=== PATIENT | female | born 1975 | race Two or more races ===

== ENCOUNTER 2023-02-04 22:42 | Emergency (ER) | payer SELFPAY ==
[2023-02-04] MEDS ORDERED: Lidocaine 1% 5 ML VIAL INJECT ONE (23:16)
[2023-02-04] MEDS ORDERED: Lidocaine 1% 10 ML MDV INJECT ONE (23:18)
== END 2023-02-04 23:49 | disposition home or self-care (01) ==
LOC: JD.ED 22:42
DX: S01.312A Laceration without foreign body of left ear, initial encounter (principal); F17.210 Nicotine dependence, cigarettes, uncomplicated; Z86.16 Personal history of COVID-19; W19.XXXA Unspecified fall, initial encounter
CPT/HCPCS: 12011; 99282; 99283; J3490

== ENCOUNTER 2024-01-21 00:10 | Observation (INO) | payer MEDICAID ==
[2024-01-21] MEDS: Morphine 4 MG/ML Syringe IVPUSH ONE (01:13)
[2024-01-21] MEDS: Ondansetron 4 MG/2 ML SDV IVPUSH ONE (01:15)
[2024-01-21] MEDS: Sodium Chloride 0.9% 1,000 ML IV SCH (01:15)
[2024-01-21] MEDS: Sodium Chloride 0.9% 10 ML Syringe FLUSH PRN (01:18)
[2024-01-21 01:30] LABS: APPEARANCE,URINE CLEAR (Clear); BILIRUBIN,URINE NEGATIVE (Negative); COLOR,URINE YELLOW (Yellow); GLUCOSE,URINE NEGATIVE (Negative); KETONES,URINE TRACE (Negative); LEUKOCYTE ESTERASE,URINE TRACE (Negative); NITRITE,URINE NEGATIVE (Negative); OCCULT BLOOD,URINE TRACE-INTACT (Negative); PH,URINE 5.5 (5.0-8.0); PROTEIN,URINE TRACE (Negative); UROBILINOGEN,URINE 0.2 (0.2-1.0)
[2024-01-21 01:34] LABS: BASOPHILS PERCENT AUTO 0.6 % (0.0-1.0); EOSINOPHILS ABSOLUTE AUTO 0.3 K/mm3 (0.0-0.4); EOSINOPHILS PERCENT AUTO 4.3 % (0.0-6.0); HEMATOCRIT 43.4 % (37.0-47.0); HEMOGLOBIN 13.5 gm/dl (12.0-16.0); IMMATURE GRAN ABSOLUTE AUTO 0.02 K/mm3 (0.00-0.05); IMMATURE GRAN PERCENT AUTO 0.3 % (0.0-0.4); LYMPHOCYTES ABSOLUTE AUTO 1.9 K/mm3 (1.0-4.8); LYMPHOCYTES PERCENT AUTO 30.2 % (24.0-44.0); MEAN CORPUSCULAR HGB CONC 31.1 g/dl (32.0-36.0); MEAN CORPUSCULAR VOLUME 80.4 fl (83.0-99.0); MEAN PLATELET VOLUME 11.1 fl (9.4-12.3); MONOCYTES ABSOLUTE AUTO 0.5 K/mm3 (0.0-0.8); MONOCYTES PERCENT AUTO 8.6 % (0.0-8.0); NEUTROPHILS ABSOLUTE AUTO 3.5 K/mm3 (1.8-7.7); PLATELET COUNT,PLT 205 K/mm3 (150-400)
[2024-01-21 01:52] LABS: BACTERIA,URINE FEW /hpf (FEW); EPITHELIAL CELLS,URINE 0-5 /hpf (0-5); MUCUS,URINE MODERATE /hpf (FEW); RBC,URINE 0-5 /hpf (0-5); WBC,URINE 0-5 /hpf (0-5)
[2024-01-21 01:53] LABS: ALBUMIN 3.6 g/dl (3.4-5.0); ANION GAP 12.6 (5-15); BILIRUBIN TOTAL 0.2 mg/dL (0.2-1.0); BUN/CREATININE RATIO 21.4 (14-18); CALCIUM 8.9 mg/dL (8.5-10.1); CREATININE 0.7 mg/dL (0.55-1.02); EST CRCL DRUG DOSING (CG) 86.72 mL/min; POTASSIUM,K 3.6 mEq/L (3.5-5.1); PROTEIN TOTAL,TP 7.1 g/dl (6.4-8.2)
[2024-01-21 02:00] LABS: SLIDE REVIEW NORMAL SMEAR
[2024-01-21] MEDS: Ondansetron 4 MG/2 ML SDV IVPUSH SCH (03:14)
[2024-01-21] MEDS: Morphine 4 MG/ML Syringe IVPUSH SCH (03:16)
[2024-01-21] MEDS: cefOXitin 2 GM in Premix Bag 1 BAG IV ONE (03:47)
[2024-01-21] MEDS ORDERED: fentaNYL 100 MCG/2 ML SDV ONE (11:29)
[2024-01-21] MEDS ORDERED: Midazolam 1 MG/ML 2 ML SDV ONE (11:29)
[2024-01-21] MEDS ORDERED: Propofol 200 MG/20 ML SDV ONE (11:53)
[2024-01-21] MEDS ORDERED: Lidocaine 1% 5 ML VIAL ONE (11:57)
[2024-01-21] MEDS ORDERED: Rocuronium 50 MG/5 ML Vial ONE (11:57)
[2024-01-21] MEDS ORDERED: ceFAZolin 2 GM Vial ONE (12:34)
[2024-01-21] MEDS ORDERED: Ondansetron 4 MG/2 ML SDV ONE (12:34)
[2024-01-21] MEDS ORDERED: Dexamethasone 4 MG/ML 5 ML MDV ONE (12:34)
[2024-01-21] MEDS ORDERED: Lactated Ringers 1,000 ML ONE (12:50)
[2024-01-21] MEDS ORDERED: Sugammadex Sodium 200 MG/2 ML VIAL IV ONE (13:00)
[2024-01-21] MEDS ORDERED: Ketorolac 30 MG/ML SDV ONE (13:00)
[2024-01-21] MEDS ORDERED: HYDROmorphone 0.5 MG/0.5 ML Syringe ONE (13:02)
[2024-01-21] MEDS: Lidocaine 1% 30 ML SDV ONE (13:49)
[2024-01-21] MEDS: Bupivacaine 0.5% 30 ML SDV ONE (13:49)
[2024-01-21] MEDS: EPINEPHrine 1 MG/ML SDV ONE (13:49)
[2024-01-21] MEDS: fentaNYL 100 MCG/2 ML SDV IVPUSH PRN (15:00)
[2024-01-21] MEDS: HYDROmorphone 0.5 MG/0.5 ML Syringe IVPUSH PRN (16:04)
== END 2024-01-21 17:46 | disposition home or self-care (01) ==
LOC: JD.ED 00:10 → JD.MS 02:51
PROVIDERS: ADMIT Surgery; ATTEND Surgery
DX: K80.12 Calculus of gallbladder with acute and chronic cholecystitis without obstruction (principal); F17.210 Nicotine dependence, cigarettes, uncomplicated
CPT/HCPCS: 36415; 47562; 76705; 80053; 81001; 83690; 84703; 85025; 87086; 96361; 96365; 96375; 96376; 99285; G0378; J0171; J0665; J0690; J0694; J1100; J1170; J1885; J2250; J2270; J2405; J2704; J3010; J3490; J7030; J7120; 00790; 81003

== ENCOUNTER 2024-11-10 21:42 | Emergency (ER) | payer MEDICAID ==
[2024-11-10] MEDS ORDERED: cefTRIAXone 1 GM Vial IM ONE (22:13)
[2024-11-10] MEDS: Acetaminophen 325 MG Tab PO ONE (22:26)
[2024-11-10] MEDS: cefTRIAXone 1 GM, Lidocaine 1% 2.1 ML IM ONE (22:26)
[2024-11-10] MEDS: Acetaminophen/oxyCODONE 325-5 MG Tab PO ONE (22:27)
== END 2024-11-10 22:40 | disposition home or self-care (01) ==
LOC: JD.ED 21:42
DX: K04.7 Periapical abscess without sinus (principal); Z79.899 Other long term (current) drug therapy; Z86.16 Personal history of COVID-19
CPT/HCPCS: 96372; 99282; A9270; J0696; J2003; 99283

== ENCOUNTER 2024-12-25 08:24 | Emergency (ER) | payer MEDICAID ==
[2024-12-25 09:10] LABS: APPEARANCE,URINE SLT CLOUDY (Clear); BILIRUBIN,URINE NEGATIVE (Negative); COLOR,URINE YELLOW (Yellow); GLUCOSE,URINE NEGATIVE (Negative); KETONES,URINE TRACE (Negative); LEUKOCYTE ESTERASE,URINE TRACE (Negative); NITRITE,URINE NEGATIVE (Negative); OCCULT BLOOD,URINE NEGATIVE (Negative); PROTEIN,URINE NEGATIVE (Negative)
[2024-12-25 09:15] LABS: BACTERIA,URINE MODERATE /hpf (FEW); MUCUS,URINE MANY /hpf (FEW); RBC,URINE 0-5 /hpf (0-5); SQUAMOUS EPITHELIAL CELLS,UR 20-30 /hpf (0-5)
[2024-12-25 09:17] LABS: BARBITURATE SCREEN,URINE NEGATIVE (CUTOFF=200); BENZODIAZEPINES SCREEN,URINE NEGATIVE (CUTOFF=150); BUPRENORPHINE SCREEN,URINE NEGATIVE (CUTOFF=10); METHADONE SCREEN, URINE NEGATIVE (CUTOFF=200); METHAMPHETAMINES SCREEN, URINE NEGATIVE (CUTOFF=500); OXYCODONE SCREEN,URINE NEGATIVE (CUT0FF=100); THC SCREEN,URINE 20 NG/ML NEGATIVE (CUTOFF=50)
[2024-12-25 09:22] LABS: AMPHETAMINES SCREEN, URINE NEGATIVE (CUTOFF=500)
[2024-12-25 10:34] LABS: C. TRACHOMATIS BY PCR NOT DETECTED; N. GONORRHOEAE BY PCR NOT DETECTED
== END 2024-12-25 10:43 | disposition home or self-care (01) ==
LOC: JD.ED 08:24
DX: N76.0 Acute vaginitis (principal); N39.0 Urinary tract infection, site not specified; F17.210 Nicotine dependence, cigarettes, uncomplicated; Z79.899 Other long term (current) drug therapy; Z86.16 Personal history of COVID-19
CPT/HCPCS: 80306; 81001; 81025; 81515; 87491; 87591; 99283

== ENCOUNTER 2025-05-11 17:21 | Emergency (ER) | payer MEDICAID ==
[2025-05-11 18:23] LABS: BASOPHILS ABSOLUTE AUTO 0.0 K/mm3 (0.0-0.2); BASOPHILS PERCENT AUTO 0.7 % (0.0-1.0); EOSINOPHILS ABSOLUTE AUTO 0.2 K/mm3 (0.0-0.4); EOSINOPHILS PERCENT AUTO 3.2 % (0.0-6.0); IMMATURE GRAN ABSOLUTE AUTO 0.03 K/mm3 (0.00-0.05); IMMATURE GRAN PERCENT AUTO 0.5 % (0.0-0.4); LYMPHOCYTES ABSOLUTE AUTO 2.1 K/mm3 (1.0-4.8); LYMPHOCYTES PERCENT AUTO 36.4 % (24.0-44.0); MEAN PLATELET VOLUME 11.6 fl (9.4-12.3); MONOCYTES ABSOLUTE AUTO 0.6 K/mm3 (0.0-0.8); MONOCYTES PERCENT AUTO 10.8 % (0.0-8.0); NEUTROPHILS ABSOLUTE AUTO 2.7 K/mm3 (1.8-7.7); NEUTROPHILS PERCENT AUTO 48.4 % (41.0-71.0); NRBC ABSOLUTE 0.00 (0.00-0.02); NRBC PERCENT 0.0 % (0.0-0.2); PLATELET COUNT,PLT 202 K/mm3 (150-400); RED BLOOD CELL COUNT 5.50 M/mm3 (4.10-5.30); WHITE BLOOD CELL COUNT,WBC 5.63 K/mm3 (3.9-11.3)
[2025-05-11 18:40] LABS: A/G RATIO 1.0 (1-2); ALANINE AMINOTRANSFERASE,ALT 34.0 U/L (14-59); ASPARTATE AMNIOTRANSFERASE,AST 38.0 U/L (15-37); BILIRUBIN TOTAL 0.4 mg/dL (0.2-1.0); BLOOD UREA NITROGEN,BUN 16.0 mg/dL (7-18); CARBON DIOXIDE,CO2 27.0 mEq/L (21-32); CHLORIDE,CL 106.0 mEq/L (98-107); CREATININE 0.8 mg/dL (0.55-1.02); EST CRCL DRUG DOSING (CG) 71.91 mL/min; ESTIMATED GFR 91.0 mL/min (>60); GLUCOSE RANDOM 111.0 mg/dL (70-99); POTASSIUM,K 3.9 mEq/L (3.5-5.1); PROTEIN TOTAL,TP 7.8 g/dl (6.4-8.2); SODIUM,NA 141.0 mEq/L (136-145)
[2025-05-11] MEDS: Iopamidol 612 MG/ML 100 ML Bottle IVPUSH ONE (19:32)
[2025-05-11] MEDS: Sodium Chloride 0.9% 10 ML Syringe FLUSH ONE (19:32)
== END 2025-05-11 20:50 | disposition home or self-care (01) ==
LOC: JD.ED 17:21
DX: K59.00 Constipation, unspecified (principal); Z86.16 Personal history of COVID-19
CPT/HCPCS: 36415; 74177; 80053; 83690; 84703; 85025; 86140; 99284; Q9967

== ENCOUNTER 2025-08-10 07:47 | Day surgery (SDC) | payer BC ==
[~2025-08-10 07:47] MED LIST: Sodium Chloride 0.9% 10 ML Syringe FLUSH PRN; Sodium Chloride 0.9% 10 ML Syringe FLUSH SCH
[2025-08-10] MEDS: Lactated Ringers 1,000 ML IV SCH (08:25)
[2025-08-10] MEDS ORDERED: Propofol 200 MG/20 ML SDV ONE ×2 (08:57→09:05)
== END 2025-08-10 10:12 | disposition home or self-care (01) ==
LOC: JD.SDS 07:47
PROVIDERS: ATTEND Surgery
DX: Z12.11 Encounter for screening for malignant neoplasm of colon (principal); K64.0 First degree hemorrhoids; K64.4 Residual hemorrhoidal skin tags; Z79.899 Other long term (current) drug therapy
CPT/HCPCS: 45378; J2704; J7120; 00812